=== PATIENT | female | born 1960 | race Caucasian/White ===

== ENCOUNTER → 2016-09-01 | Outpatient (CLI) | payer BC ==
[~2016-09-01] MED LIST: OMEP20CA81 PO; ZOLP-107 PO
--- NOTE | 2016-09-01 16:07 | DI ---
INDICATION: ITS.REASON: R06.02 SHORTNESS OF BREATH PROCEDURE: CHEST 2-VIEWS UPRIGHT (PA \T\ LAT) Encounter: Initial COMPARISON: April 12, 2015 FINDINGS: The lungs are clear without evidence of focal abnormal airspace opacity. There is no pleural effusion or pneumothorax. The heart size, mediastinal contours and pulmonary vascularity are within normal limits. There is no significant skeletal abnormality. IMPRESSION: No acute cardiopulmonary disease. .
== END ==
LOC: IMA 14:52
PROVIDERS: ATTEND Family Medicine
DX: R06.02 Shortness of breath (principal)

== ENCOUNTER → 2016-09-06 | Outpatient (CLI) | payer BC | LOC: NEU 13:44 | PROVIDERS: ATTEND Family Medicine | DX: M79.1 Myalgia (principal) | CPT/HCPCS: 95886; 95910 ==